=== PATIENT | female | born 1980 | race Caucasian/White ===

== ENCOUNTER 2021-07-23 11:02 | Emergency (ER) | payer OTHER ==
--- NOTE | 2021-07-23 11:25 | EDM.PDOC ---
ED HPI GENERAL MEDICAL PROBLEM - General Chief Complaint: General Stated Complaint: HURT WRIST Time Seen by Provider: 07/23/21 11:15 Source of Information: Reports: Patient History Limitations: Reports: No Limitations - History of Present Illness INITIAL COMMENTS - FREE TEXT/NARRATIVE: Fell off of hoverboard today just prior to arrival. Right wrist hurts, denies any other injuries. No loss of consciousness. Denies , has IUD. Had right carpal tunnel surgery in March. Can move right wrist, not really tender to palpation, just states that "it hurts deep inside". Came in with wrist splint. Onset: Today Onset Date: 07/23/21 Onset Time: 10:00 Duration: Constant Location: Reports: Upper Extremity, Right Quality: Reports: Ache Improves with: Reports: None Worsens with: Reports: None Context: Reports: Trauma Associated Symptoms: Reports: No Other Symptoms Treatments POISING INSPECTOR: Reports: Splint(s) - Related Data Allergies Allergy/AdvReac Type Severity Reaction Status Date / Time Sulfa (Sulfonamide Allergy Unknown Other Verified 07/23/21 11:25 Antibiotics) povidone-iodine Allergy Rash Verified 07/23/21 11:25 [From Betadine] Past Medical History - Past Surgical History Musculoskeletal Surgical History: Reports: Carpal Tunnel Review of Systems - Review of Systems Review Of Systems: Comprehensive ROS is negative, except as noted in HPI. ED EXAM, GENERAL - Physical Exam Exam: See Below Exam Limited By: No Limitations General Appearance: Alert, No Apparent Distress Ears: Normal External Exam Nose: Normal Inspection, No Blood Throat/Mouth: Normal Voice, No Airway Compromise Head: Atraumatic, Normocephalic Neck: Supple, Non-Tender, Full Range of Motion Respiratory/Chest: No Respiratory Distress, Lungs Clear, Normal Breath Sounds, No Accessory Muscle Use, Chest Non-Tender Cardiovascular: Normal Peripheral Pulses, Regular Rate, Rhythm, No Edema GI/Abdominal: Soft, Non-Tender Back Exam: Normal Inspection, Full Range of Motion Extremities: Normal Range of Motion, Non-Tender, No Pedal Edema, Normal Capillary Refill, Arm Pain (right wrist pain) Neurological: Alert, Oriented, Normal Cognition, Normal Gait, No Motor/Sensory Deficits Psychiatric: Normal Affect, Normal Mood Skin Exam: Warm, Dry, Intact, Normal Color, No Rash Lymphatic: No Adenopathy Course - Vital Signs Last Recorded V/S: Last Vital Signs Temp 98.9 F 07/23/21 11:19 Pulse 77 07/23/21 11:19 Resp 19 07/23/21 11:19 BP 131/83 07/23/21 11:19 Pulse Ox 100 07/23/21 11:19 - Re-Assessments/Exams Free Text/Narrative Re-Assessment/Exam: 07/23/21 11:37 Denies need for Tylenol or other pain med. Gave ice pack and instructed to keep elevated. Awaiting radiology read. Free Text/Narrative Re-Assessment/Exam: 07/23/21 12:41 xray shows no fracture Departure - Departure Time of Disposition: 12:40 Disposition: Home, Self-Care 01 Condition: Good Clinical Impression: Right wrist pain - Discharge Information Instructions: Wrist Pain, Adult, [id number] Forms: ED Department Discharge Additional Instructions: Tylenol and ibuprofen per label directions. Avoid painful motions. Elevate, may use ice packs. Follow up with your Primary Care Provider if symptoms worsen or do not resolve. Sepsis Event Note (ED) - Focused Exam Vital Signs: Vital Signs Temp Pulse Resp BP Pulse Ox 07/23/21 11:19 98.9 F 77 19 131/83 100 - Problem List & Annotations (1) Right wrist pain SNOMED Code(s): 11507381 Code(s): M25.531 - PAIN IN RIGHT WRIST Status: Acute Current Visit: Yes (2) Right wrist pain SNOMED Code(s): 00841163 Code(s): M25.531 - PAIN IN RIGHT WRIST Status: Acute Current Visit: Yes - Problem List Review Problem List Initiated/Reviewed/Updated: Yes
--- NOTE | 2021-07-23 12:33 | CR ---
[id number] RAD/RAD Wrist Right 3V Min EXAM: RAD Wrist Right 3V Min CLINICAL DATA: TRAUMA COMPARISON: No previous similar exam is available. FINDINGS: No fracture or dislocation is seen. There is no radiopaque foreign body in the soft tissues. There is no air in the soft tissues. There is no cortical thickening or periosteal reaction either. IMPRESSION: NEGATIVE PLAIN FILM EXAM. Ricky Sawyer MD 07/23/21 [id number] Thank you for allowing us to participate in the care of your patient.
== END 2021-07-23 12:45 | disposition home or self-care (01) ==
LOC: VM.ED 11:02
DX: M25.531 Pain in right wrist (principal); Z88.2 Allergy status to sulfonamides; Z88.8 Allergy status to other drugs, medicaments and biological substances
CPT/HCPCS: 73110-RT; 99283-25